=== PATIENT | male | born 1960 | race African-American/Black ===

== ENCOUNTER → 2017-04-30 | Outpatient (CLI) | payer OTHER, MEDICARE ==
[~2017-04-30] MED LIST: AMBI12.52 PO; AMBI5TAB OR; BACL10TA2 OR; CELE20TA OR; CONRAY-43 43% 50ML VIAL (Q9960) As Ordered ONE; EXCETAB OR; LYRI300C OR; NAPR500T OR; PROHANCE 279.3MG/ML 5ML VIAL (A9576) As Ordered ONE; SERT25TA2 OR; SERT25TA85 PO; baclofen PO; lyrica PO
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
--- NOTE | 2017-04-30 16:41 | REP ---
Procedure: Left shoulder arthrogram The procedure was performed under the direct supervision of Dr. Flores. History: Left shoulder pain The benefits and risks including but not limited to pain, infection, bleeding and anaphylaxis were explained to the patient and informed consent was obtained. Technique: The left glenohumeral joint space was localized using fluoroscopic guidance. The skin was prepped and draped in a sterile fashion. 1% lidocaine was used as a local anesthetic. Using fluoroscopic guidance a 22 gauge spinal needle was inserted and advanced into the joint. 0.5 ml of Conray 43 was injected to verify placement. 11 ml of a solution containing 20 ml of sterile saline and 0.15 ml of ProHance was injected into the joint. The needle was removed and the patient was taken to MRI for postprocedural imaging. The the patient tolerated the procedure well and there were no immediate complications. 4 seconds of fluoro time was utilized for this procedure. Reviewed by MARIA A Green 04/30/2017 03:58 PSigned by Geovani Flores MD 04/30/2017 04:33 P
== END ==
LOC: M RADPRO 08:16
PROVIDERS: ATTEND Physician Assistant
DX: M75.112 Incomplete rotator cuff tear or rupture of left shoulder, not specified as traumatic (principal); M65.812 Other synovitis and tenosynovitis, left shoulder; M19.012 Primary osteoarthritis, left shoulder; M25.412 Effusion, left shoulder; Z88.0 Allergy status to penicillin
CPT/HCPCS: 23350; 73223; 77002; A9576; Q9960

== ENCOUNTER → 2017-06-08 | Outpatient (CLI) | payer MEDICARE, OTHER | LOC: M PAIN 10:15 | DX: G89.21 Chronic pain due to trauma (principal); M54.5 Low back pain; F43.10 Post-traumatic stress disorder, unspecified; G35 Multiple sclerosis; Z88.0 Allergy status to penicillin; Z79.899 Other long term (current) drug therapy; Z86.79 Personal history of other diseases of the circulatory system | CPT/HCPCS: G0463 ==

== ENCOUNTER → 2017-08-10 | Outpatient (CLI) | payer OTHER, MEDICARE | LOC: M EKG 14:05 | DX: M75.102 Unspecified rotator cuff tear or rupture of left shoulder, not specified as traumatic (principal) | CPT/HCPCS: 93005 ==

== ENCOUNTER → 2018-01-14 | Outpatient (REF) | payer OTHER, MEDICARE | LOC: M LAB REF 15:14 | DX: M67.432 Ganglion, left wrist (principal) | CPT/HCPCS: 88304 ==

== ENCOUNTER 2019-01-25 12:13 | Emergency (ER) | payer OTHER, MEDICARE ==
[~2019-01-25] VITALS: Ht 175.3 cm; Wt 77.3 kg
[~2019-01-25 12:13] MED LIST changes: -CONRAY-43 43% 50ML VIAL (Q9960) As Ordered ONE; -PROHANCE 279.3MG/ML 5ML VIAL (A9576) As Ordered ONE
[2019-01-25] MEDS ORDERED: NS 1,000 ML IV ONE (13:00)
[2019-01-25] MEDS ORDERED: ISOVUE-370 76% 100ML VIAL (Q9967) As Ordered ONE (13:33)
[2019-01-25 13:34] LABS: BASO % 0.9 % (0.0-1.0); EOS # 0.2 10^3/uL (0.0-0.50); EOS % 5.5 % (0.0-3.0); HEMATOCRIT 45.2 % (42.0-52.0); HEMOGLOBIN 14.8 g/dl (13.5-17.5); LYMPH # 0.9 10^3/uL (1.5-4.5); LYMPH % 26.7 % (24.0-44.0); MEAN CORPUSCULAR HEMOGLOBIN 30.3 pg (27.0-33.0); MEAN CORPUSCULAR HGB CONC 32.7 g/dl (32.0-36.5); MEAN CORPUSCULAR VOLUME 92.6 fl (80.0-96.0); MONO # 0.4 10^3/uL (0.0-0.8); MONO % 12.2 % (0.0-5.0); NEUTROPHILS # 1.9 10^3/uL (1.8-7.7); NEUTROPHILS % 54.4 % (36.0-66.0); PLATELET COUNT, AUTOMATED 195 10^3/uL (150-450); RED BLOOD COUNT 4.88 10^6/uL (4.30-6.10); WHITE BLOOD COUNT 3.5 10^3/uL (4.0-10.0)
[2019-01-25] MEDS ORDERED: KETOROLAC 30 MG/ML VIAL (J1885) IV ONE (13:45)
[2019-01-25 13:57] LABS: ALBUMIN 3.8 GM/DL (3.2-5.2); BILIRUBIN,DIRECT 0.3 MG/DL (0.0-0.2); BILIRUBIN,TOTAL 1.6 MG/DL (0.2-1.0); TOTAL PROTEIN 6.8 GM/DL (6.4-8.2)
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
--- NOTE | 2019-01-25 14:40 | REP ---
CT CHEST WITH IV CONTRAST: TECHNIQUE: Axial contrast enhanced images from the thoracic inlet to the upper abdomen using 100 mL Isovue 370 intravenous contrast material with multiplanar reformations. Lungs are free of infiltrate or other abnormal parenchymal opacities. There is no mediastinal, hilar, or chest wall lymphadenopathy. The heart is normal in size. There is no pleural or pericardial effusion. Thoracic aorta is intact. No fracture is seen of the visualized osseous structures. IMPRESSION: Negative CT chest with IV contrast. No posttraumatic findings. Electronically Signed by Cody Coffey MD 01/26/2019 12:09 A
--- NOTE | 2019-01-25 15:01 | REP ---
CT ABDOMEN AND PELVIS WITH IV CONTRAST: TECHNIQUE: Axial contrast enhanced images from the lung bases to the pubic symphysis using 100 mL Isovue 370 intravenous contrast material with multiplanar reformations. The liver, spleen, adrenals, pancreas and kidneys are essentially normal in appearance. No post-traumatic visceral injury is seen. Abdominal aorta is normal in caliber with no aneurysm. There is no adenopathy. There is no free air or free fluid. No bowel wall thickening is seen. The urinary bladder is mildly distended and appears grossly unremarkable. The visualized osseous structures are intact. Metallic rods and screws are seen posteriorly fusing L4 through S1 with disc spacers noted at L4-5 and L5-S1. IMPRESSION: No post-traumatic findings as discussed in detail above. Electronically Signed by Cody Coffey MD 01/26/2019 12:09 A
--- NOTE | 2019-01-25 15:13 | REP ---
LEFT SHOULDER, THREE VIEWS: Three views of the left shoulder are performed. I see no acute fracture or dislocation. There is mild narrowing of the acromioclavicular joint. There is a small anchor in the proximal humeral shaft. Cystic changes are seen in the humeral head. IMPRESSION: No acute fracture or dislocation. Postsurgical changes. Electronically Signed by Cody Coffey MD 01/26/2019 12:10 A
--- NOTE | 2019-01-25 15:15 | REP ---
LEFT WRIST SERIES: Five views of the left wrist performed. There is a small round calcific density adjacent to the ulnar styloid process which may represent an old avulsion fracture. No acute fracture or dislocation is seen. Joint spaces are unremarkable. IMPRESSION: No acute fracture or dislocation. Electronically Signed by Cody Coffey MD 01/26/2019 12:10 A
--- NOTE | 2019-01-25 15:16 | REP ---
LEFT ELBOW, FOUR VIEWS: Four views of the left elbow are performed. I see no acute fracture or dislocation. There is an oval calcification posterior to the olecranon measuring 9 x 4 mm. This may be within the triceps tendon or within the olecranon bursa. No other significant findings are seen. IMPRESSION: No acute fracture or dislocation. Electronically Signed by Cody Coffey MD 01/26/2019 12:11 A
[2019-01-25] MEDS ORDERED: IBUP-1022 PO (15:25)
[2019-01-25 15:45] VITALS: BP 138/90
== END 2019-01-25 16:10 | disposition home or self-care (01) ==
LOC: M ED 12:13 → EDBD 12:13 → M ED 16:10
DX: Z04.1 Encounter for examination and observation following transport accident (principal); Z88.0 Allergy status to penicillin
CPT/HCPCS: 36415; 70450; 71260; 72125; 73030; 73080; 73110; 74177; 80047; 80076; 85025; 96374; 99284; J1885; Q9967

== ENCOUNTER → 2020-08-21 | Outpatient (CLI) | payer MEDICARE, OTHER ==
[~2020-08-21] MED LIST changes: +IBUP-1022 PO
--- NOTE | 2020-08-21 20:44 | ECGEPIP ---
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
== END ==
LOC: M EKG 16:18
PROVIDERS: ATTEND Orthopaedic Surgery
DX: Z01.818 Encounter for other preprocedural examination (principal)

== ENCOUNTER → 2020-10-02 | Outpatient (CLI) | payer MEDICARE, OTHER ==
--- NOTE | 2020-10-04 00:27 | ECWPNPC ---
PATIENT NAME: CRISTA FIELD : 1960 GENDER: MALE VISIT DATE: 10/02/2020 DISCHARGE DATE: 10/02/20 1402 VISIT LOCKED DATE TIME: PHYSICIAN: SIVAKUMAR KUMARI RESOURCE: SIVAKUMAR KUMARI REASON FOR APPOINTMENT 1. BOTOX ONLY FOR CHRONIC MIGRAINES HISTORY OF PRESENT ILLNESS DEPRESSION SCREENING: PHQ-2 (2015 EDITION) LITTLE INTEREST OR PLEASURE IN DOING THINGS?NOT AT ALL FEELING DOWN, DEPRESSED, OR HOPELESS?NOT AT ALL TOTAL SCORE0 GENERAL: HERE PER REFERRAL OF [facility] TO EVALUATE AND TREAT CHRONIC MIGRAINE HEADACHE WITH BOTOX. PATIENT HAS BEEN RECEIVING BOTOX AT [facility] OVER THE PAST 2 YEARS WITH MARKED REDUCTION IN HEADACHE FREQUENCY AND SEVERITY. THEY ARE NO LONGER DOING BOTOX AT NEUROLOGY DUE TO INSURANCE CONSTRAINTS AND HE IS BEING REFERRED TO CONTINUE BOTOX THERAPY WITH US. REPORTS DAILY MIGRAINE HEADACHE THAT IS THROBBING IN NATURE. PAIN IS AGGRAVATED WHEN HE IS LAYING FLAT. HAS TRIALED MULTIPLE TRIPTAN MEDICATIONS IN THE PAST WITHOUT IMPROVEMENT. HAS TRIED PEUS-[id number]-[id number] MEDICATIONS TO INCLUDE EXCEDRIN MIGRAINE, IBUPROFEN AND TYLENOL WITHOUT IMPROVEMENT. HAS BEEN ON ANTIDEPRESSANTS WITHOUT IMPROVEMENT. ON COPAXONE THERAPY FOR MS. PATIENT STATES HE HAS MILD WEAKNESS IN HIS RIGHT ARM AND RIGHT LEG. DENIES SEIZURE DISORDER. DENIES NUMBNESS AND TINGLING IN THE EXTREMITIES. DENIES VISUAL DISTURBANCE OR DOUBLE VISION. WALKS WITH ASSIST OF A CANE. HISTORY OF MULTIPLE LOW BACK SURGERIES DUE TO INJURIES SUSTAINED WHILE DEPLOYED TO [employer] SEVERAL YEARS AGO. DENIES BOWEL OR BLADDER INCONTINENCE. DENIES RECENT FEVER OR ILLNESS OR SUDDEN WEIGHT LOSS. REPORTS GREATER THAN 15 MIGRAINE HEADACHE DAYS A MONTH LASTING GREATER THAN 4 HOURS. DENIES AURA. ON A SCALE OF 1-10 IMPAIRMENT IN ACTIVITIES OF DAILY LIVING DUE TO CHRONIC MIGRAINE HEADACHE IS 8/10. - - -. FALL RISK SCREENING: SCREENING : NO FALLS REPORTED IN THE LAST YEAR , : NO FALLS REPORTED IN THE LAST YEAR. PAIN SCREENING: PATIENT HAS A COMPLAINT OF ACUTE OR CHRONIC PAIN :NO DENIES HEADACHE PAIN CURRENTLY. STATES HE HEADACHES DAILY.WORSE WITH LAYING FLAT.PATIENT DOES NOTE CHRONIC LOW BACK PAIN. NURSING NOTE: - - -. PAIN CENTER INTAKE QUESTIONS: DO YOU HAVE A HISTORY OF MRSA? :NO DO YOU TAKE A BLOOD THINNERS? :NO DO YOU HAVE ANY BLEEDING DISORDERS? :NO ANY NEW NUMBNESS OR WEAKNESS IN YOUR LEGS OR ARMS? :NO ANY PACEMAKER,DEFIBRILLATOR, OR DORSAL COLUMN STIMULATOR? :NO DO YOU HAVE ANY RASHES OR OPEN SORES? :NO ARE YOU ALLERGIC TO IV DYE? :NO ARE YOU DIABETIC? :NO ANY NEW PROBLEMS WITH YOUR MEDICATIONS? :NO HAVE YOU RECEIVED A VACCINE IN THE PAST 30 DAYS? :NO DO YOU PLAN TO RECEIVE A VACCINE IN THE NEXT 21 DAYS? :NO DO YOU NEED ANY PRESCRIPTION? :NO DO YOU TAKE ANY IMMUNOSUPPRESSIVE MEDICATIONS? :NO IS THERE A CHANCE YOU COULD BE ? :NO ARE YOU BREAST FEEDING? :NO CURRENT MEDICATIONS TAKING NUVIGIL 150 MG TABLET (SCHEDULE IV DRUG) (PRIOR AUTH: RX REF#:[id number]) ORAL TAKING BACLOFEN 10 MG TABLET 1 TABLET WITH FOOD OR MILK ORALLY THREE TIMES A DAY NEEDED TAKING COPAXONE 40 MG/ML SOLUTION PREFILLED SYRINGE 1 ML SUBCUTANEOUS THREE TIMES A WEEK TAKING VITAMIN D3 50 MCG (1999 UT) CAPSULE 1 CAPSULE ORALLY ONCE A DAY, NOTES: NOT CONSISTENTLY TAKING MAXALT 10 MG TABLET 1 TABLET ORALLY ONCE A DAY NEEDED TAKING VIAGRA 25 MG TABLET 1 TABLET NEEDED ORALLY ONCE A DAY NOT-TAKING LYRICA 200 MG CAPSULE 1 CAPSULE 1 TO 3 HOURS BEFORE BEDTIME IN THE EVENING ORALLY BID MEDICATION LIST REVIEWED AND RECONCILED WITH THE PATIENT PAST MEDICAL HISTORY PTSD TBI BACK PAIN / LEG PAIN 5 BACK SURG MIRGRAINES INSOMNIA MULTIPLE SCLEROSIS ALLERGIES PENICILLIN (FOR ALLERGIES USE ONLY) SURGICAL HISTORY L4 -L5 FUSION 07/2008 L4-L5 REVISION 07/2008 DISCECTOMY 2006 DISCECTOMY 2007 RIGHT 5TH FINGER RELEASE 05/1992 FAMILY HISTORY FATHER: 65 YRS MOTHER: ALIVE, DIAGNOSED WITH UNSPECIFIED CEREBRAL ARTERY OCCLUSION WITH CEREBRAL INFARCTION 4 BROTHER(S) , 1 SISTER(S) - HEALTHY. 2 SON(S) , 2 DAUGHTER(S) - HEALTHY. SOCIAL HISTORY GENERAL: TOBACCO USE ARE YOU A:NONSMOKER LATEX QUESTIONNAIRE LATEX ALLERGY : HAVE YOU EVER DEVELOPED ANY TYPE OF REACTION AFTER HANDLING LATEX PRODUCTS SUCH RUBBER GLOVES, CONDOMS, DIAPHRAGMS, BALLOONS, SOCKS, OR UNDERWEAR?NO LATEX ALLERGY : HAVE YOU EVER DEVELOPED ANY TYPE OF REACTION DURING OR AFTER DENTAL APPOINTMENT, VAGINAL/RECTAL EXAMINATION, SURGICAL PROCEDURE, OR ANY OTHER EXPOSURE?NO LATEX RISK : HAVE YOU EVER HAD ANY DIFFICULTY BREATHING OR HIVES AFTER EATING OR HANDLING ANY FRUITS, OR VEGETABLES; SUCH KIWI, BANANAS, STONE FRUITS, OR CHESTNUTSNO LATEX RISK : DO YOU HAVE A PREVIOUS PERSONAL HISTORY OF MORE THAN NINE SURGERIES, SPINA BIFIDA, OR REPEATED CATHERIZATIONS? NO LATEX RISK : ARE YOU FREQUENTLY EXPOSED TO LATEX PRODUCTS IN YOUR OCCUPATION?NO DATE ASKED : 10/02/2020 ALCOHOL USE: NO. RECREATIONAL DRUG USE DRUG USE?NO HOAHAOISM [id number] JAIN LANGUAGE LANGUAGES SPOKEN:CZECH LEARNING BARRIERS / SPECIAL NEEDS BARRIERS TO LEARNING?NO HEARING IMPAIRED?NO VISION IMPAIRED?YES :CORRECTIVE LENSES COGNITIVELY IMPAIRED?NO READINESS TO LEARN?YES LEARNING PREFERENCES?YES :BOOKLETS, HANDOUTS LEARNING CAPABILITIES PRESENT?YES EMOTIONAL BARRIERS?NO SPECIAL DEVICES?YES :CANE SUPERVISOR ERECTION SHOP NEEDED?NO - HAS THE PATIENT BEEN EDUCATED REGARDING HIS/HER PLAN OF CARE?YES HAS THE PATIENT BEEN EDUCATED REGARDING PAIN, THE RISK FOR PAIN, THE IMPORTANCE OF EFFECTIVE PAIN MANAGEMENT, AND THE PAIN ASSESSMENT PROCESS?YES ADVANCE DIRECTIVE HEALTH CARE PROXY? NO, WOULD YOU LIKE MORE INFORMATION? NO. HOSPITALIZATION/MAJOR DIAGNOSTIC PROCEDURE SURGERY RELATED REVIEW OF SYSTEMS CONSTITUTIONAL: ANY RECENT FEVER NO . CHILLS NO . WEIGHT CHANGE OF UNKNOWN REASONS NO . GASTROENTEROLOGY: NEW UNEXPLAINABLE CHANGES IN BOWEL CONTROL NO . CONSTIPATION NO . GENITOURINARY: ANY NEW CHANGE IN BLADDER CONTROL? NO . NEUROLOGY: NEW ONSET DIZZINESS OR NEUROLOGICAL CHANGES NOT MENTIONED NO . NEW NUMBNESS OR PAIN PATTERNS NOT MENTIONED AND PERTINENT TO TODAY'S VISIT NO . CARDIOLOGY: NEW CHEST PRESSURE NO . PATIENT DENIES NO . RESPIRATORY: UNEXPLAINABLE COUGH NO . NEW SHORTNESS OF BREATH NO . VITAL SIGNS WT 173.4 LBS, HT 69 IN, BMI 25.60 INDEX, BP 136/87 MM HG, HR 78 /MIN, RR 18 /MIN, TEMP 97.0 F, OXYGEN SAT % 99%, SAFE IN ENV? (Y/N) YES, NA INITIALS AW 1307, REVIEWED BY: KAY NAPOLES. EXAMINATION GENERAL EXAMINATION: GENERALNO ACUTE DISTRESS, WELL NOURISHED AND HYDRATED. PSYCHAPPROPRIATE MOOD AND AFFECT . HEENT:EOMI, NO SCLERAL ICTERUS, NARES PATENT, ORAL MUCOSA MOIST. FACE:UNREMARKABLE. NECK:NO LYMPHADENOPATHY, SUPPLE, NO THYROMEGALLY, NO JVD OR BRUITS. LUNGS:CLEAR TO AUSCULTATION BILATERALLY, NO WHEEZES, RHONCHI, RALES. HEART:NO MURMURS, REGULAR RATE AND RHYTHM. MUSCULOSKELETAL:NORMAL RANGE OF MOTION. MUSCLE STRENGTH TESTING 5/5 BILATERAL UPPER/LOWER EXTREMITIES. NEUROLOGIC EXAM:CN'S II-XII GROSSLY INTACT. NEGATIVE ROMBERG TEST. DIAGNOSTIC TESTS REVIEWEDMRI CERVICAL, THORACIC AND BRAIN 2019 . ASSESSMENTS CHRONIC MIGRAINE WITHOUT AURA, NOT INTRACTABLE, WITHOUT STATUS MIGRAINOSUS - G43.709 (PRIMARY) TREATMENT CHRONIC MIGRAINE WITHOUT AURA, NOT INTRACTABLE, WITHOUT STATUS MIGRAINOSUS NOTES: BOTOX INJECTIONS 155U EVERY 3 MONTHS TO THE HEAD, NECK AND SHOULDER AREAS PRINTED AND REVIEWED PRE PROCEDURE TEACHING, PATIENT VERBALIZED UNDERSTANDING RUBY KEEN. PROCEDURE CODES FA211 ESTABILISHED PATIENT [facility] CHARGE DISPOSITION & COMMUNICATION FOLLOW UP POST PROCEDURE (REASON: BOTOX INJECTIONS TO THE HEAD, NECK AND SHOULDER AREAS) ELECTRONICALLY SIGNED BY TEVIN HAN ON 10/03/2020 AT 02:51 PM EDT DISCLAIMER : THIS IS A VISIT SUMMARY EXTRACTED FROM THE [employer] CHART. IT IS NOT A COPY OF THE [employer] PROGRESS NOTE. SAMEERA
== END ==
LOC: M PAIN 13:00
PROVIDERS: ATTEND Nurse Practitioner Family
DX: G43.709 Chronic migraine without aura, not intractable, without status migrainosus (principal); F43.10 Post-traumatic stress disorder, unspecified; Z87.820 Personal history of traumatic brain injury; G47.00 Insomnia, unspecified; G20 Parkinson's disease; Z79.899 Other long term (current) drug therapy; Z88.0 Allergy status to penicillin

== ENCOUNTER → 2020-10-10 | Outpatient (CLI) | payer MEDICARE, OTHER | LOC: M LABSMTC 10:38 | PROVIDERS: ATTEND Anesthesiology | DX: Z20.822 Contact with and (suspected) exposure to COVID-19 (principal) ==

== ENCOUNTER → 2020-10-15 | Outpatient (CLI) | payer MEDICARE, OTHER ==
[~2020-10-15] MED LIST changes: +BOTOX THERAPEUTIC 100 UNIT VIAL (J0585 PER 1 UNIT) IM ONE
--- NOTE | 2020-10-18 00:53 | ECWPNPC ---
PATIENT NAME: CRISTA FIELD : 1960 GENDER: MALE VISIT DATE: 10/15/2020 DISCHARGE DATE: 10/15/20 1149 VISIT LOCKED DATE TIME: PHYSICIAN: NOAM MARCH MD RESOURCE: NOAM MARCH MD REASON FOR APPOINTMENT 1. BOTOX INJECTIONS TO HEAD, NECK AND SHOULDER AREAS 2. PATIENT HAS MS AND DR. MARCH WANTS TO BE REMINDED AT THIS APPOINTMENT TO SPEAK WITH PATIENT REGUARDING THE MS AND BOTOX HISTORY OF PRESENT ILLNESS GENERAL: -. FALL RISK SCREENING: SCREENING : ONE FALL REPORTED IN THE LAST YEAR WITHOUT INJURY. PAIN SCREENING: PATIENT HAS A COMPLAINT OF ACUTE OR CHRONIC PAIN :YES LOCATION OF PAIN:HEAD, NECK, UPPER BACK INTENSITY OF PAIN (SCALE OF 1 TO 10): 3-10/10 DEPENDING ON ACTIVITIES WHAT DOES YOUR PAIN FEEL LIKE:THROBBING DURATION:CONTINOUS, CONSTANT PAIN IS INCREASED BY: SITTING, LAYING DOWN PAIN IS DECREASED BY:USE OF PAIN MEDICATIONS NURSING NOTE: -. PAIN CENTER INTAKE QUESTIONS: DO YOU HAVE A HISTORY OF MRSA? :NO DO YOU TAKE A BLOOD THINNERS? :NO DO YOU HAVE ANY BLEEDING DISORDERS? :NO ANY NEW NUMBNESS OR WEAKNESS IN YOUR LEGS OR ARMS? :YES SOMETIMES ANY PACEMAKER,DEFIBRILLATOR, OR DORSAL COLUMN STIMULATOR? :NO DO YOU HAVE ANY RASHES OR OPEN SORES? :NO ARE YOU ALLERGIC TO IV DYE? :NO ARE YOU DIABETIC? :NO ANY NEW PROBLEMS WITH YOUR MEDICATIONS? :NO HAVE YOU RECEIVED A VACCINE IN THE PAST 30 DAYS? :NO DO YOU PLAN TO RECEIVE A VACCINE IN THE NEXT 21 DAYS? :NO DO YOU TAKE ANY IMMUNOSUPPRESSIVE MEDICATIONS? :YES COPAXONE FOR MS ANY HISTORY OF SEIZURES? :NO ANY HISTORY OF CARDIAC ISSUES OR EVENTS? :NO DO YOU HAVE ANY KIDNEY OR LIVER DISEASE? :NO DO YOU HAVE SLEEP APNEA? :YES DO YOU WEAR A CPAP?NO ANY RECENT HEAD INJURY? :NO DO YOU HAVE ANY NEW INFECTIONS? :NO IS THERE A CHANCE YOU COULD BE ? :NO ARE YOU BREAST FEEDING? :NO WHEN DID YOU LAST EAT? : 10/14/20 8PM WHEN DID YOU LAST DRINK? : 10/14/20 WHAT DID YOU LAST DRINK? : TEA NAME OF PERSON DRIVING YOU HOME? : DO YOU HAVE ANY OTHER QUESTIONS OR CONCERNS? : - CURRENT MEDICATIONS TAKING NUVIGIL 150 MG TABLET (SCHEDULE IV DRUG) (PRIOR AUTH: RX REF#:[id number]) ORAL TAKING BACLOFEN 10 MG TABLET 1 TABLET WITH FOOD OR MILK ORALLY THREE TIMES A DAY NEEDED, NOTES: 07/2020 TAKING COPAXONE 40 MG/ML SOLUTION PREFILLED SYRINGE 1 ML SUBCUTANEOUS THREE TIMES A WEEK, NOTES: 10/12/20 TAKING VITAMIN D3 50 MCG (2000 UT) CAPSULE 1 CAPSULE ORALLY ONCE A DAY, NOTES: NOT CONSISTENTLY TAKING MAXALT 10 MG TABLET 1 TABLET ORALLY ONCE A DAY NEEDED TAKING VIAGRA 25 MG TABLET 1 TABLET NEEDED ORALLY ONCE A DAY TAKING BOTOX 100 UNIT SOLUTION RECONSTITUTED FOR IM INJECTION AT THE HEAD, NECK AND SHOULDER MUSCLES ICD G43.709 APPOINTMENT ON 10/15/2020 AT 10:40 AM NOT-TAKING LYRICA 200 MG CAPSULE 1 CAPSULE 1 TO 3 HOURS BEFORE BEDTIME IN THE EVENING ORALLY BID MEDICATION LIST REVIEWED AND RECONCILED WITH THE PATIENT PAST MEDICAL HISTORY PTSD TBI BACK PAIN / LEG PAIN 5 BACK SURG MIRGRAINES INSOMNIA MULTIPLE SCLEROSIS ALLERGIES PENICILLIN (FOR ALLERGIES USE ONLY) SOCIAL HISTORY GENERAL: TOBACCO USE ARE YOU A:NONSMOKER LATEX QUESTIONNAIRE LATEX ALLERGY : HAVE YOU EVER DEVELOPED ANY TYPE OF REACTION AFTER HANDLING LATEX PRODUCTS SUCH RUBBER GLOVES, CONDOMS, DIAPHRAGMS, BALLOONS, SOCKS, OR UNDERWEAR?NO LATEX ALLERGY : HAVE YOU EVER DEVELOPED ANY TYPE OF REACTION DURING OR AFTER DENTAL APPOINTMENT, VAGINAL/RECTAL EXAMINATION, SURGICAL PROCEDURE, OR ANY OTHER EXPOSURE?NO DATE ASKED : 10/02/2020 LATEX RISK : HAVE YOU EVER HAD ANY DIFFICULTY BREATHING OR HIVES AFTER EATING OR HANDLING ANY FRUITS, OR VEGETABLES; SUCH KIWI, BANANAS, STONE FRUITS, OR CHESTNUTSNO LATEX RISK : DO YOU HAVE A PREVIOUS PERSONAL HISTORY OF MORE THAN NINE SURGERIES, SPINA BIFIDA, OR REPEATED CATHERIZATIONS? NO LATEX RISK : ARE YOU FREQUENTLY EXPOSED TO LATEX PRODUCTS IN YOUR OCCUPATION?NO ALCOHOL USE: NO. RECREATIONAL DRUG USE DRUG USE?NO MOSQUE [id number] TAOISM LANGUAGE LANGUAGES SPOKEN:YORUBA LEARNING BARRIERS / SPECIAL NEEDS BARRIERS TO LEARNING?NO HEARING IMPAIRED?NO VISION IMPAIRED?YES COGNITIVELY IMPAIRED?NO :CORRECTIVE LENSES READINESS TO LEARN?YES LEARNING PREFERENCES?YES :BOOKLETS, HANDOUTS LEARNING CAPABILITIES PRESENT?YES EMOTIONAL BARRIERS?NO SPECIAL DEVICES?YES :CANE ASSET ADMINISTRATOR NEEDED?NO - HAS THE PATIENT BEEN EDUCATED REGARDING HIS/HER PLAN OF CARE?YES HAS THE PATIENT BEEN EDUCATED REGARDING PAIN, THE RISK FOR PAIN, THE IMPORTANCE OF EFFECTIVE PAIN MANAGEMENT, AND THE PAIN ASSESSMENT PROCESS?YES ADVANCE DIRECTIVE HEALTH CARE PROXY? NO, WOULD YOU LIKE MORE INFORMATION? NO. VITAL SIGNS WT 174.8 LBS, HT 69 IN, BMI 25.81 INDEX, BP 123/77 MM HG, HR 84 /MIN, RR 18 /MIN, TEMP 97.6 F, OXYGEN SAT % 98%, NA INITIALS AW 1028, REVIEWED BY: EM. EXAMINATION GENERAL: A HISTORY AND PHYSICAL EXAM ON THE PATIENT WAS DONE ON 10/02/2020 (DATE OF ORIGINAL ASSESSMENT) IN PREPARATION OF SURGERY/PROCEDURE. I HAVE NOW REASSESSED THIS PATIENT'S HEALTH STATUS AND PERFORMED AN UPDATED EXAM TODAY. ALL CHANGES IN THE PATIENT'S HISTORY, PHYSICAL EXAM, PRE-EXISTING CONDITONS, AND INDICATIONS/CONTRAINDICATIONS TO THE PLANNED PROCEDURE AND ANESTHESIA ARE DOCUMENTED AND EVALUATED BELOW. I ATTEST TO THE ADEQUACY AND APPROPRIATENESS OF MY ASSESSMENT, AND CONFIRM THE NECESSITY FOR THE PLANNED PROCEDURE. THE PATIENT IS ALERT, ORIENTED TIMES THREE AND COOPERATIVE. LUNGS ARE CLEAR TO AUSCULTATION. HEART SHOWS REGULAR RHYTHM, NO MURMURS AND NO GALLOPS. ASSESSMENTS CHRONIC MIGRAINE - G43.709 (PRIMARY) TREATMENT CHRONIC MIGRAINE COMPLETION OF PROCEDURAL VISIT WHEN MEETS CRITERIARAUL MONTERO 10/15/2020 11:56:53 AM > CRITERIA MET OTHERS NOTES: 10/12/2020 1135 PRE PROCEDURE PHONE CALL ATTEMPTED, MESSAGE LEFT FOR PATIENT TO RETURN CALL. Josefina CABRALES RN. PROCEDURES PAIN NURSING RECORD PROCEDURE PHYSICIAN IN ROOM 1121, START 1124, FINISH 1130, PHYSICIAN OUT OF ROOM 1131, OUT OF ROOM 1150, ECG N/A, PATIENT SHIELDED NO, SAFETY STRAP NO, PREP ALCOHOL DR. MARCH, DRESSING N/A LOC: 1. ALERT, ORIENTED, RAUL MONTERO 10/15/2020 11:25:41 AM > RESP: 1. REGULAR, NO DYSPNEA, RAUL MONTERO 10/15/2020 11:25:57 AM > COLOR: 1. PINK, PT IS AND SKIN COLOR IS AT BASELINE., RAUL MONTERO 10/15/2020 11:25:58 AM > SKIN: 1. WARM, DRY, RAUL MONTERO 10/15/2020 11:25:06 AM > POSITION: 2. SUPINE, RAUL MONTERO 10/15/2020 11:25:15 AM > VITALS: 134/84, 72, 16, 98%, RAUL MONTERO 10/15/2020 11:25:37 AM > NOTES Ivan MONTERO RN COMPLETION OF PROCEDURE APPOINTMENT: POST PAIN 0, DRESSING SITE NO DRESSING, IV N/A, GAIT STEADY WITH CANE, TEACHING COMPLETED, PATIENT ACKNOWLEDGES UNDERSTANDING YES, PROCEDURE APPOINTMENT COMPLETED AT 1153 PN BOTOX INJECTIONS FIRST INJECTION PRE PROCEDURE DIAGNOSIS CHRONIC MIGRAINE HEADACHES POST PROCEDURE DIAGNOSIS CHRONIC MIGRAINE HEADACHES PROCEDURE BOTOX INJECTION AT THE HEAD, NECK AND SHOULDERS SURGEON DR. NOAM MARCH LIGHT INDUSTRIAL SUPERVISOR NONE ANESTHESIA NONE PRE PROCEDURE NOTE THE PATIENT HAS HISTORY OF CHRONIC MIGRAINE HEADACHES. I EVALUATED THE PATIENT AND REVIEWED THE CHART. I WENT OVER THE RISKS, ALTERNATIVES, AND BENEFITS ASSOCIATED WITH THIS PROCEDURE. THE PATIENT WOULD LIKE TO PROCEED AND GAVE CONSENT TO PERFORM THE PROCEDURE. THE PATIENT DENIES UNEXPLAINABLE WEIGHT LOSS, FEVER, CHILLS, OR NEW CHANGES IN URINARY OR BOWEL CONTROL. BEFORE DOING BOTOX, THE PATIENT WAS HAVING HEADACHES EVERYDAY. AFTER BOTOX, HE IS HAVING 12 HEADACHES PER MONTH. THE PATIENT HAD A SURGERY OVER HIS LEFT SHOULDER JUST RECENTLY. I DISCUSSED WITH THE PATIENT THAT MS CAN EFFECT NEUROLOGICAL SYMPTOMS AND HOW THE MUSCLE WORKS. WE DISCUSSED THAT IF HE HAS UNUSUAL NUMBNESS, HE SHOULD DISCUSS THIS WITH HIS NEUROLOGIST. THE PATIENT HAS USED THE MEDICATIONS LISTED IN THE CHART TO TREAT THE HEADACHES FOR MANY MONTHS BUT THE HEADACHES PERSIST DESCRIBED ABOVE. THE PATIENT IS COVID-19 NEGATIVE DESCRIPTION OF PROCEDURE THE PATIENT WAS BROUGHT TO THE PROCEDURE ROOM AND PLACED IN THE SUPINE POSITION. A TIMEOUT WAS PERFORMED WHERE THE CONSENTED SITE WAS VERIFIED WITH EVERYONE IN THE ROOM FOR THE PROCEDURE I USED A SOLUTION OF 5 UNITS OF BOTOX PER EACH 0.1 ML OF THE SOLUTION. I USED A 30-GAUGE NEEDLE TO INJECT THE SOLUTION AT THE SELECTED LOCATIONS. I INJECTED FIRST THE RIGHT AND LEFT FIRER RETORT MUSCLES. THE LANDMARK FOR BOTH INJECTIONS WAS APPROXIMATELY 1 CM ABOVE THE SUPERIOR MEDIAL EDGE OF THE EYEBROW. AFTER THESE TWO INJECTIONS, I INJECTED THE PROCERUS MUSCLE AT THE MIDLINE POINT BETWEEN THESE FIRST TWO INJECTIONS. THEN I PROCEEDED TO INJECT THE RIGHT AND LEFT FRONTALIS MUSCLE. TWO INJECTIONS WERE DONE IN EACH SIDE. THE FIRST INJECTION WAS DONE APPROXIMATELY 2 CM ABOVE THE FIRST INJECTION OF THE FIRER RETORT. THE SECOND INJECTION WAS DONE APPROXIMATELY 1.5 CM LATERAL TO THIS FIST INJECTION OF THE FRONTALIS OF EACH SIDE. AFTER THE INJECTIONS OVER THE FOREHEAD WERE DONE, THE PATIENT'S HEAD WAS TURNED TO THE LEFT SIDE AND WE STARTED TO WORK WITH THE RIGHT TEMPORALIS MUSCLE. FIRST INJECTION WAS DONE IN A VERTICAL LINE OF THE TRAGUS APPROXIMATELY 3 CM ABOVE THE TRAGUS. THE SECOND INJECTION WAS DONE APPROXIMATELY 2 CM ABOVE THE FIRST INJECTION. THE THIRD INJECTION WAS DONE APPROXIMATELY 1 CM FORWARD FROM THIS VERTICAL LINE CREATED AT THE LEVEL OF THE TRAGUS, CHCF BETWEEN THESE TWO INJECTIONS. THE FOURTH INJECTION WAS DONE APPROXIMATELY 1.5 CM BACK FROM THE SECOND INJECTION TO THE TEMPORALIS IN LINE TO THE MIDPORTION OF THE EAR. THEN, WE PROCEEDED TO INJECT THE LEFT TEMPORALIS MUSCLE. WE CLEANED THE AREA WITH ALCOHOL AND PROCEEDED TO PERFORM THE SAME FOR INJECTIONS DESCRIBED ABOVE BUT IN THE LEFT TEMPORALIS MUSCLE USING THE SAME LANDMARKS. AFTER THESE INJECTIONS WERE DONE, THE PATIENT WAS SEATED. FIRST, WE STARTED TO INJECT THE LEFT AND RIGHT OCCIPITALIS MUSCLE. I INJECTED AT THE FOLLOWING PLACES IN THE RIGHT AND LEFT MUSCLE. THE FIRST INJECTION WAS DONE AT THE MIDPOINT POSITION BETWEEN THE MASTOID PROCESS AND THE INION OF THE OCCIPITAL PROTUBERANCE. THE SECOND INJECTION WAS DONE APPROXIMATELY 1.5 CM SUPERIOR AND LATERAL OF THIS POINT. THE THIRD INJECTION WAS DONE APPROXIMATELY 1.5 CM SUPERIOR AND MEDIAL TO THIS FIRST INJECTION. NEXT, I PROCEEDED TO INJECT THE RIGHT AND LEFT PARASPINAL MUSCLES. LANDMARK OF THE INJECTION WERE APPROXIMATELY: FIRST INJECTION 3 CM BELOW THE INION AND 1 CM LATERAL TO THE MIDLINE AND SECOND INJECTION AT EACH SIDE WAS DONE APPROXIMATELY 1.5 CM SUPERIOR AND LATERAL OF THE FIRST INJECTION. THE LAST GROUP OF INJECTIONS WAS DONE OVER THE RIGHT AND LEFT TRAPEZIUS MUSCLE OVER THE SHOULDERS AREA. THE FIRST INJECTION WAS DONE AT THE MIDPOINT BETWEEN THE INFLECTION POINT BETWEEN THE NECK AND SHOULDER AND THE ACROMION. THE SECOND AND THIRD INJECTIONS WERE DONE APPROXIMATELY 2.5 CM LATERAL AND MEDIAL FROM THIS FIRST INJECTION. SAME TARGETS WERE USED IN THE RIGHT AND LEFT SIDE. IN TOTAL, I INJECTED 155 UNITS OF BOTOX. THE MEDICATIONS WERE VERIFIED WITH THE NURSE. PROCEDURE WAS DONE WITHOUT EVIDENCE OF PARESTHESIA OR ANY COMPLICATIONS. THE PATIENT TOLERATED THE PROCEDURE VERY WELL. ESTIMATED BLOOD LOSS WAS LESS THAN 5 ML. THE PATIENT WAS SENT TO THE RECOVERY ROOM FOR OBSERVATIONS. INJECTIONS WERE DONE AFTER CLEANING WITH ALCOHOL, USING ASEPTIC TECHNIQUES POST PROCEDURE NOTE THE PROCEDURE DONE WAS DISCUSSED WITH THE PATIENT. THE PATIENT WILL BE SEEN IN A FOLLOW UP IN THE NEXT FEW WEEKS. I AM LOOKING FOR LONG LASTING PAIN RELIEF FOR THE PATIENT WITH THIS INTERVENTION. INSTRUCTIONS WERE GIVEN, QUESTIONS WERE ANSWERED, AND THE PATIENT EXPRESSED UNDERSTANDING AND AGREES WITH THE PLAN. I, FERNANDO MARTINEZ, DOCUMENTED THE ABOVE INFORMATION ACTING A SCRIBE FOR DR. MARCH. I HAVE REVIEWED THE ABOVE DOCUMENT, WRITTEN BY FERNANDO MARTINEZ, SPEECH LANGUAGE THERAPIST, AND I VERIFY THAT IT IS ACCURATE PROCEDURE CODES 59495 CHEMODENERV MUSC MIGRAINE DISPOSITION & COMMUNICATION FOLLOW UP FOLLOW UP WITH MUCK BOSS (REASON: POST BOTOX INJECTIONS TO HEAD, NECK AND SHOULDER AREAS) ELECTRONICALLY SIGNED BY NOAM MARCH MD, MD ON 10/17/2020 AT 04:37 PM EDT DISCLAIMER : THIS IS A VISIT SUMMARY EXTRACTED FROM THE [employer] CHART. IT IS NOT A COPY OF THE [employer] PROGRESS NOTE. MTDJuan
== END ==
LOC: M PAIN 10:40
PROVIDERS: ATTEND Anesthesiology
DX: G43.709 Chronic migraine without aura, not intractable, without status migrainosus (principal); G47.30 Sleep apnea, unspecified; G47.00 Insomnia, unspecified; G35 Multiple sclerosis; Z87.820 Personal history of traumatic brain injury; Z86.59 Personal history of other mental and behavioral disorders; Z88.0 Allergy status to penicillin; Z79.899 Other long term (current) drug therapy
CPT/HCPCS: 64615; J0585